=== PATIENT | male | born 1970 | race Caucasian/White ===

== ENCOUNTER 2018-11-19 00:52 | Emergency (ER) | payer MEDICARE ==
--- NOTE | 2018-11-19 01:29 | ERPHSYRPT ---
- History of Present Illness Time Seen by Provider: 11/19/18 01:20 Source: patient, family Exam Limitations: no limitations Patient Subjective Stated Complaint: Wound check to right lower leg Triage Nursing Assessment: Patient brought back to ED via w/c and transferred self to bed. Patient A+O X3. Patient's skin pink, warm and dry. Patient complains of right lower leg pain 9/10 constant throbbing pain. Patient has cast in place after having orthopedic surgery to right ankle on this past Wednesday per Dr. Peterson . Patient states his cast to right lower leg feels too tight and is rubbing his leg raw. Patient states he felt something warm running down his leg inside the cast. Cappilary refill good. Toes and upper leg noted to be warm to touch. Patient able to wiggle toes. Physician History: 48 y/o white male presents with right lower leg and ankle pain after post op cast placed by Dr. Peterson, orthopedic surgeon, after a surgical procedure 2 days ago. pt states cast too tight. pt wants it removed or loosened. pt is on post op norco, which isnt helping his pain, and keflex. he is unsure of the type of surgery but metal placed in ankle. Method of Injury: other (postop) Occurred: days ago Quality: aching, throbbing Severity of Pain-Max: moderate Severity of Pain-Current: moderate Lower Extremities Pain: leg: right, ankle: right Modifying Factors: Improves With: movement Associated Symptoms: other (cast feels too tight) Allergies/Adverse Reactions: No Known Drug Allergies Allergy (Verified 11/19/18 00:58) Home Medications: Potassium Chloride 10 Meq Tab* [Klor Con 10 MEQ] 10 meq PO DAILY 12/15/14 [ History] Albuterol 8 gm Mdi Hfa [Ventolin Hfa MDI] 2 puff IH Q4H 01/31/16 [History] Atorvastatin Calcium 40 mg PO DAILY 01/31/16 [History] Doxepin HCl 100 mg PO DAILY 01/31/16 [History] Duloxetine HCl [Cymbalta] 60 mg PO DAILY 01/31/16 [History] Fluticasone/Salmeterol Disc [Advair 250-50 Diskus 14 Dose] 1 each IH BID 01/31/16 [History] Furosemide [Lasix] 40 mg PO DAILY 01/31/16 [History] Isosorbide Mononitrate 30 mg [Imdur 30 MG] 30 mg PO DAILY 01/31/16 [History ] Metoprolol Tartrate 25 mg [Lopressor 25MG Tab] 25 mg PO BID 01/31/16 [ History] Nitroglycerin 0.4 mg Tablet [Nitrostat 0.4 MG Tablet] 0.4 mg SL Q5MIN PRN MR X 3 PRN 01/31/16 [History] Omeprazole 20 MG [Prilosec 20 mg] 20 mg PO BID 01/31/16 [History] Quetiapine Fumarate [Seroquel Xr] 300 mg PO HS 01/31/16 [History] Ranolazine [Ranexa] 1,000 mg PO BID 01/31/16 [History] Rivaroxaban [Xarelto] 20 mg PO DAILY 01/31/16 [History] Sertraline HCl [Zoloft] 100 mg PO BID 01/31/16 [History] Umeclidinium Brm/Vilanterol Tr [Anoro Ellipta 62.5-25 Mcg INH] 1 each IH DAILY 01/31/16 [History] clonazePAM [Klonopin] 1 mg PO BID 01/31/16 [History] Bupropion HCl 150 mg Sr [Wellbutrin SR 150 MG] 150 mg PO BID 02/01/16 [ History] Divalproex Sodium ER 250 mg [Depakote EXTENDED RELEASE 250 MG] 250 mg PO BID 02/01/16 [History] Duloxetine HCl 30 mg [Cymbalta 30 MG Capsule] 30 mg PO DAILY 02/01/16 [ History] Hx Tetanus, Diphtheria Vaccination/Date Given: No Hx Influenza Vaccination/Date Given: No Hx Pneumococcal Vaccination/Date Given: No Immunizations Up to Date: Yes - Review of Systems Constitutional: No Symptoms Eyes: No Symptoms Ears, Nose, & Throat: No Symptoms Respiratory: No Symptoms Cardiac: No Symptoms Abdominal/Gastrointestinal: No Symptoms Genitourinary Symptoms: No Symptoms Musculoskeletal: Other (painful right lower leg with tightness of cast) Skin: No Symptoms Neurological: No Symptoms Psychological: No Symptoms Endocrine: No Symptoms Hematologic/Lymphatic: No Symptoms Immunological/Allergic: No Symptoms All Other Systems: Reviewed and Negative - Past Medical History Pertinent Past Medical History: Yes Neurological History: Epilepsy, Seizures ENT History: No Pertinent History Cardiac History: Coronary Artery Disease, Deep Vein Thrombosis, High Cholesterol , Hypertension Respiratory History: COPD, Pulmonary Embolism, Sleep Apnea Endocrine Medical History: No Pertinent History Musculoskeletal History: No Pertinent History GI Medical History: GERD, Polyps History: No Pertinent History Psycho-Social History: Anxiety, Attention Deficit Disorder, Depression, Panic Disorder Male Reproductive Disorders: No Pertinent History Other Medical History: 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 - Past Surgical History Past Surgical History: Yes Neuro Surgical History: No Pertinent History Cardiac: No Pertinent History Respiratory: No Pertinent History Gastrointestinal: Other Genitourinary: No Pertinent History Musculoskeletal: No Pertinent History, Orthopedic Surgery Male Surgical History: No Pertinent History Other Surgical History: patient states he had surgery 2 1/2 weeks ago at [facility] and they removed an abdominal polyp. Ankle surgery 2018 - Social History Smoking Status: Former smoker How long have you smoked: 31 years a Exposure to second hand smoke: Yes Drug Use: none Patient Lives Alone: No - Nursing Vital Signs Nursing Vital Signs: Initial Vital Signs Temperature 98.2 F 11/19/18 00:59 Pulse Rate 89 11/19/18 00:59 Respiratory Rate 18 11/19/18 00:59 Blood Pressure 141/116 11/19/18 00:59 O2 Sat by Pulse Oximetry 97 11/19/18 00:59 Pain Scale Pain Intensity 9 - Physical Exam General Appearance: no apparent distress, alert, anxiety Eyes, Ears, Nose, Throat Exam: normal ENT inspection, moist mucous membranes Neck Exam: normal inspection, non-tender, supple, full range of motion Cardiovascular/Respiratory Exam: chest non-tender, normal breath sounds, regular rate/rhythm, heart sounds normal Gastrointestinal/Abdominal Exam: non-tender Back Exam: normal inspection, normal range of motion, No CVA tenderness, No vertebral tenderness Hips Exam: bilateral: non-tender, normal inspection, normal range of motion, no evidence of injury Legs Exam: right leg: bone tenderness, soft tissue tenderness, other (pt has right lower leg cast), left leg: non-tender, normal inspection, normal range of motion, no evidence of injury Knees Exam: bilateral knee: non-tender, normal inspection, normal range of motion, no evidence of injury Ankle Exam: right ankle: bone tenderness, soft tissue tenderness, other (right lower leg cast), left ankle: non-tender, normal inspection, normal range of motion, no evidence of injury Foot Exam: right foot: bone tenderness, soft tissue tenderness, other (right lower leg cast), left foot: non-tender, normal inspection, normal range of motion, no evidence of injury Neuro/Tendon Exam: normal sensation (good cap refill all toes right foot. ) Mental Status Exam: alert, oriented x 3, cooperative Skin Exam: normal color, warm, dry SpO2 Interpretation: normal SpO2: 97 O2 Delivery: Room Air - Course Nursing assessment & vital signs reviewed: Yes Ordered Tests: Medication Summary Discontinued Medications Generic Name Dose Route Start Last Admin Trade Name Freq PRN Reason Stop Dose Admin Hydromorphone HCl 1 mg 11/19/18 02:24 Hydromorphone 1 Mg/Ml Ampule IV 11/19/18 02:25 STAT ONE Hydromorphone HCl Confirm 11/19/18 02:27 Hydromorphone 1 Mg/Ml Ampule Administered 11/19/18 02:28 Dose 1 mg .ROUTE .STK-MED ONE Hydromorphone HCl 1 mg 11/19/18 02:29 Hydromorphone 1 Mg/Ml Ampule IM 11/19/18 02:30 STAT ONE Ondansetron HCl 4 mg 11/19/18 02:24 Zofran Odt 4 Mg PO 11/19/18 02:25 STAT ONE Ondansetron HCl Confirm 11/19/18 02:27 Zofran Odt 4 Mg Administered 11/19/18 02:28 Dose 4 mg .ROUTE .STK-MED ONE - Progress Progress: improved Progress Note: 11/19/18 02:37 after obtaining verbal consent of pt, we loosened pts cast by using electric saw axially to cut into cast. pt states this relieved his pain. we then wrapped entire length of cast with an olga wrap. no complications. pt taylor well. Counseled pt/family regarding: diagnosis, need for follow-up - Departure Departure Disposition: Home Clinical Impression: Cast discomfort Condition: Stable Critical Care Time: No Referrals: AMELIA REYNOSO MD [Primary Care Provider] - Additional Instructions: continue your pain medications and antibiotics as prescribed. call your orthopedic surgeon today to obtain further instructions for care.
[2018-11-19] MEDS ORDERED: Hydromorphone 1 mg/ml Ampule IV ONE (02:24)
[2018-11-19] MEDS ORDERED: ZOFRAN ODT 4 MG PO ONE (02:24)
[2018-11-19] MEDS ORDERED: Hydromorphone 1 mg/ml Ampule ONE (02:27)
[2018-11-19] MEDS ORDERED: ZOFRAN ODT 4 MG ONE (02:27)
[2018-11-19] MEDS ORDERED: Hydromorphone 1 mg/ml Ampule IM ONE (02:29)
[2018-11-19 02:49] VITALS: BP 125/76; PULSE 78; O2SAT 96
== END 2018-11-19 03:03 | disposition home or self-care (01) ==
LOC: ED 00:52
DX: M79.661 Pain in right lower leg (principal); Z47.89 Encounter for other orthopedic aftercare
CPT/HCPCS: 96372; 99283; J1170; Q0162